=== PATIENT | male | born 1975 | race Caucasian/White ===

== ENCOUNTER 2018-11-12 21:29 | Emergency (ER) | payer OTHER ==
[~2018-11-12] VITALS: Ht 193 cm; Wt 90.7 kg
[2018-11-12 21:42] VITALS: BP 163/98
[2018-11-12] MEDS ORDERED: REMERON15 M2 PO (21:44)
[2018-11-12] MEDS ORDERED: GENVOYA TABLET1 EACH PO (21:45)
[2018-11-12] MEDS ORDERED: METFORMIN HCL500 MG PO (21:45)
[2018-11-12] MEDS ORDERED: AMARYL4 MG PO (21:45)
[2018-11-12] MEDS ORDERED: INVEGA6 MG PO (21:45)
[2018-11-12] MEDS ORDERED: COREG6.25 MG PO (21:46)
[2018-11-12] MEDS ORDERED: CLONAZEPAM 1 MG1 M1 PO ×2 (21:46→22:00)
[2018-11-12] MEDS ORDERED: LISINOPRIL10 MG PO (21:46)
== END 2018-11-12 22:05 | disposition home or self-care (01) ==
LOC: M.ERS 21:29
DX: F41.9 Anxiety disorder, unspecified (principal)

== ENCOUNTER 2019-12-29 02:41 | Emergency (ER) | payer OTHER ==
[~2019-12-29] VITALS: Ht 195.6 cm; Wt 108.9 kg
[~2019-12-29 02:41] MED LIST: AMARYL4 MG PO; CLONAZEPAM 1 MG1 M1 PO; COREG6.25 MG PO; GENVOYA TABLET1 EACH PO; INVEGA6 MG PO; LISINOPRIL10 MG PO; METFORMIN HCL500 MG PO; REMERON15 M2 PO
[2019-12-29] MEDS ORDERED: CLONAZEPAM 0.50.5 M1 PO (03:29)
[2019-12-29 03:49] VITALS: BP 174/104
== END 2019-12-29 03:50 | disposition home or self-care (01) ==
LOC: M.ERS 02:41
DX: F41.9 Anxiety disorder, unspecified (principal); I10 Essential (primary) hypertension; Z76.0 Encounter for issue of repeat prescription; Z79.899 Other long term (current) drug therapy

== ENCOUNTER 2020-02-12 01:12 | Emergency (ER) | payer OTHER ==
[~2020-02-12] VITALS: Ht 195.6 cm; Wt 108.9 kg
[~2020-02-12 01:12] MED LIST changes: +CLONAZEPAM 0.50.5 M1 PO
[2020-02-12] MEDS ORDERED: BUSPIRONE HCL5 MG PO (01:24)
[2020-02-12] MEDS ORDERED: HYDROCODON-ACE1 EAC7 PO (02:06)
[2020-02-12] MEDS ORDERED: CYCLOBENZAPRINE5 MG PO (02:06)
[2020-02-12] MEDS ORDERED: PENICILLIN V P500 MG PO (02:06)
[2020-02-12] MEDS ORDERED: PERIDEX 0.12%473 M1 SWISH&SPIT (02:16)
[2020-02-12] MEDS ORDERED: Magic Mouthwash SWISH&SPIT (02:16)
[2020-02-12 02:35] VITALS: BP 163/96
== END 2020-02-12 02:44 | disposition home or self-care (01) ==
LOC: M.ERS 01:12
DX: K02.9 Dental caries, unspecified (principal); K06.9 Disorder of gingiva and edentulous alveolar ridge, unspecified; K05.6 Periodontal disease, unspecified; I10 Essential (primary) hypertension; E11.9 Type 2 diabetes mellitus without complications; F41.9 Anxiety disorder, unspecified; Z21 Asymptomatic human immunodeficiency virus [HIV] infection status

== ENCOUNTER 2020-04-17 01:55 | Emergency (ER) | payer OTHER ==
[~2020-04-17] VITALS: Ht 195.6 cm; Wt 106.6 kg
[~2020-04-17 01:55] MED LIST changes: +BUSPIRONE HCL5 MG PO; +CYCLOBENZAPRINE5 MG PO; +HYDROCODON-ACE1 EAC7 PO; +Magic Mouthwash SWISH&SPIT; +PENICILLIN V P500 MG PO; +PERIDEX 0.12%473 M1 SWISH&SPIT
[2020-04-17] MEDS ORDERED: EZALLOR SPRINKL10 MG PO (02:10)
[2020-04-17] MEDS ORDERED: REMERON 30 MG T30 MG PO (02:12)
[2020-04-17] MEDS ORDERED: PENICILLIN V P500 MG PO (02:24)
[2020-04-17] MEDS ORDERED: HYDROCODON-ACE1 EAC7 PO (02:24)
[2020-04-17] MEDS ORDERED: PERIDEX 0.12%473 M1 SWISH&SPIT (02:24)
[2020-04-17 02:33] VITALS: BP 148/74
== END 2020-04-17 02:33 | disposition home or self-care (01) ==
LOC: M.ERS 01:55
DX: A69.1 Other Vincent's infections (principal); K05.10 Chronic gingivitis, plaque induced; I10 Essential (primary) hypertension; E11.9 Type 2 diabetes mellitus without complications; F41.9 Anxiety disorder, unspecified; Z21 Asymptomatic human immunodeficiency virus [HIV] infection status

== ENCOUNTER 2020-05-07 21:48 | Emergency (ER) | payer OTHER ==
[~2020-05-07] VITALS: Ht 195.6 cm; Wt 104.3 kg
[~2020-05-07 21:48] MED LIST changes: +EZALLOR SPRINKL10 MG PO; +REMERON 30 MG T30 MG PO
[2020-05-07] MEDS ORDERED: PENICILLIN V P500 MG PO (22:24)
[2020-05-07 22:43] VITALS: BP 147/97
== END 2020-05-07 22:44 | disposition home or self-care (01) ==
LOC: M.ERS 21:48
DX: K12.0 Recurrent oral aphthae (principal); K02.9 Dental caries, unspecified; I10 Essential (primary) hypertension; E11.9 Type 2 diabetes mellitus without complications

== ENCOUNTER 2020-05-24 14:12 | Emergency (ER) | payer OTHER ==
[~2020-05-24] VITALS: Ht 195.6 cm; Wt 108.9 kg
[2020-05-24] MEDS ORDERED: EFFEXOR XR75 MG PO (14:37)
[2020-05-24] MEDS ORDERED: NORCO 5-325 TA1 EAC2 PO (15:35)
[2020-05-24] MEDS ORDERED: CLEOCIN HCL300 MG PO (15:35)
[2020-05-24 15:42] VITALS: BP 142/73
== END 2020-05-24 15:43 | disposition home or self-care (01) ==
LOC: M.ERS 14:12
DX: K02.9 Dental caries, unspecified (principal); R60.9 Edema, unspecified; I10 Essential (primary) hypertension; E11.9 Type 2 diabetes mellitus without complications

== ENCOUNTER 2020-05-28 01:18 | Emergency (ER) | payer OTHER ==
[~2020-05-28] VITALS: Ht 195.6 cm; Wt 108.9 kg
[~2020-05-28 01:18] MED LIST changes: +CLEOCIN HCL300 MG PO; +EFFEXOR XR75 MG PO; +NORCO 5-325 TA1 EAC2 PO
[2020-05-28 01:28] VITALS: BP 157/89
== END 2020-05-28 02:51 | disposition left against medical advice (07) ==
LOC: M.ERS 01:18
DX: Z53.21 Procedure and treatment not carried out due to patient leaving prior to being seen by health care provider (principal)

== ENCOUNTER 2020-09-22 23:07 | Emergency (ER) | payer OTHER ==
[~2020-09-22] VITALS: Ht 195.6 cm; Wt 108.9 kg
[~2020-09-22 23:07] MED LIST changes: +ACETAMINOPHEN-1 EAC2 PO; +PENICILLIN VK500 MG PO
[2020-09-22] MEDS ORDERED: VENLAFAXINE HC150 M1 PO (23:23)
[2020-09-22] MEDS ORDERED: CHANTIX1 MG PO (23:24)
[2020-09-23 00:14] VITALS: BP 142/95
== END 2020-09-23 00:04 | disposition home or self-care (01) ==
LOC: M.ERS 23:07
DX: K02.9 Dental caries, unspecified (principal); R59.0 Localized enlarged lymph nodes; I10 Essential (primary) hypertension; E11.9 Type 2 diabetes mellitus without complications; F41.9 Anxiety disorder, unspecified; Z79.899 Other long term (current) drug therapy

== ENCOUNTER 2020-09-27 19:30 | Emergency (ER) | payer OTHER ==
[~2020-09-27] VITALS: Ht 195.6 cm; Wt 108.9 kg
[~2020-09-27 19:30] MED LIST changes: +CHANTIX1 MG PO; +VENLAFAXINE HC150 M1 PO
[2020-09-27 19:37] VITALS: BP 170/99
[2020-09-27] MEDS ORDERED: CLEOCIN HCL300 MG PO (19:51)
[2020-09-27] MEDS ORDERED: IBUPROFEN 800800 M1 PO (19:51)
[2020-09-27] MEDS ORDERED: NORCO5 PO (19:51)
== END 2020-09-27 20:00 | disposition home or self-care (01) ==
LOC: M.ERS 19:30
DX: K08.89 Other specified disorders of teeth and supporting structures (principal); I10 Essential (primary) hypertension; E11.9 Type 2 diabetes mellitus without complications

== ENCOUNTER 2020-09-29 21:21 | Emergency (ER) | payer OTHER ==
[~2020-09-29] VITALS: Ht 195.6 cm; Wt 108.9 kg
[~2020-09-29 21:21] MED LIST changes: +IBUPROFEN 800800 M1 PO; +NORCO5 PO
[2020-09-29] MEDS ORDERED: ACETAMINOPHEN-1 EAC2 PO (21:50)
[2020-09-29] MEDS ORDERED: IBUPROFEN 800800 MG PO (21:50)
[2020-09-29 22:05] VITALS: BP 172/110
== END 2020-09-29 22:05 | disposition home or self-care (01) ==
LOC: M.ERS 21:21
DX: A69.1 Other Vincent's infections (principal); K02.9 Dental caries, unspecified; G89.29 Other chronic pain; I10 Essential (primary) hypertension; E11.9 Type 2 diabetes mellitus without complications; F41.9 Anxiety disorder, unspecified; Z79.899 Other long term (current) drug therapy; Z79.2 Long term (current) use of antibiotics

== ENCOUNTER 2020-12-09 05:40 | Inpatient (IN) | payer OTHER ==
[~2020-12-09] VITALS: Ht 195.6 cm; Wt 101.2 kg
[~2020-12-09 05:40] MED LIST changes: +IBUPROFEN 800800 MG PO
[2020-12-09 05:44] VITALS: BP 134/62
[2020-12-09 06:24] LABS: ABSOLUTE EOSINOPHILS 0.1 thou/uL (0.0-0.7); ABSOLUTE LYMPHOCYTES 0.7 thou/uL (0.8-5.3); ABSOLUTE MONOCYTES 0.3 thou/uL (0.0-1.2); ABSOLUTE NEUTROPHILS 1.8 thou/uL (1.6-8.1); BASOPHILS 0.5 %; EOSINOPHILS 4.6 %; HEMATOCRIT 31.7 % (42.0-52.0); HEMOGLOBIN 11.3 gm/dL (14.0-18.0); LYMPHOCYTES 23.3 %; MCH 33.1 pg (26.0-34.0); MCHC 35.7 g/dL (28.0-37.0); MCV 92.7 fL (80.0-100.0); MPV 7.8 fl. (7.2-11.1); NUCLEATED RBCS 0 /100WBC; PLATELET COUNT* 66 thou/uL (150-400); POLYS 62.6 %; RBC 3.42 mil/uL (4.50-6.00); WBC 2.9 thou/uL (4.0-11.0)
[2020-12-09 06:31] LABS: CREATININE 2.6 mg/dL (0.6-1.3); POTASSIUM 4.6 mmol/L (3.5-5.1)
[2020-12-09 06:32] LABS: CALCIUM 13.3 mg/dL (8.5-10.1)
[2020-12-09 06:35] LABS: MAGNESIUM 1.6 mg/dL (1.8-2.4); TOTAL BILIRUBIN 0.4 mg/dL (<0.1-1.0); TOTAL PROTEIN 7.2 g/dL (6.4-8.2)
[2020-12-09 08:17] VITALS: BP 141/98
[2020-12-09 08:48] VITALS: BP 138/88
--- NOTE | 2020-12-09 09:39 | EKG ---
[place] [address] ELECTROCARDIOGRAM REPORT Name: SHAHIDA DHALIWAL Room: [address] ADM IN .R.#: [id number] Admission: 12/09/20 Attend Phys: Jil Bowie, Discharge: Date of : 79 Date of Service: 12/09/20 0545 Report #: [id number] THIS REPORT FOR: //name// [facility] ED Test Date: 2020-12-09 Test Time: 05:45:00 Pat Name: SHAHIDA DHALIWAL Department: Room: [facility] Gender: M Supervisor Dials: [place] : 1975 Requested By: Krista Vela Order Number: [id number] MD: Silverio Pimentel Measurements Intervals [place] Rate: 102 P: 27 [place]: 151 QRS: 47 QRSD: 95 T: -26 QT: 320 QTc: 417 Interpretive Statements Sinus tachycardia Borderline T abnormalities, inferior leads Baseline wander in lead(s) III,V2 No previous ECG available for comparison Electronically Signed On 12-09-2020 9:39:14 CDT by Silverio Pimentel [email or web address] <ELECTRONICALLY SIGNED> By: Silverio Pimentel MD, [facility] 12/09/20 0939 0545 0545 Silverio Pimentel MD, [facility] /EPI
[2020-12-09 10:58] LABS: CREATININE 2.2 mg/dL (0.6-1.3); POTASSIUM 4.5 mmol/L (3.5-5.1)
[2020-12-09 11:00] LABS: CALCIUM 12.7 mg/dL (8.5-10.1)
[2020-12-09 11:01] LABS: PHOSPHORUS* 4.1 mg/dL (2.5-4.9)
[2020-12-09 11:48] VITALS: BP 145/95
[2020-12-09 17:15] VITALS: BP 161/98
[2020-12-09 21:09] VITALS: BP 159/89
[2020-12-10] VITALS (8 sets, daily range): BP systolic 130–150; BP diastolic 71–93
[2020-12-10 06:05] LABS: HEMATOCRIT 27.1 % (42.0-52.0); HEMOGLOBIN 9.7 gm/dL (14.0-18.0); MCH 32.3 pg (26.0-34.0); MCHC 35.7 g/dL (28.0-37.0); MCV 90.6 fL (80.0-100.0); MPV 8.5 fl. (7.2-11.1); RBC 2.99 mil/uL (4.50-6.00); RDW-CV 13.9 % (10.5-14.5); WBC 4.3 thou/uL (4.0-11.0)
[2020-12-10 06:16] LABS: CREATININE 2.1 mg/dL (0.6-1.3); POTASSIUM 4.1 mmol/L (3.5-5.1)
[2020-12-10 06:17] LABS: CALCIUM 10.5 mg/dL (8.5-10.1)
[2020-12-10 21:23] LABS: CALCIUM 9.6 mg/dL (8.5-10.1); POTASSIUM 3.8 mmol/L (3.5-5.1)
== END 2020-12-10 22:40 | disposition home or self-care (01) | DRG 640 ==
LOC: M.ERS 05:40 → M.TBA-ER 06:38 → M.2W 08:29
PROVIDERS: Emergency Medicine; Family Medicine; ADMIT Internal Medicine; ATTEND Internal Medicine
DX: E83.52 Hypercalcemia (principal); N17.0 Acute kidney failure with tubular necrosis; F10.980 Alcohol use, unspecified with alcohol-induced anxiety disorder; D61.818 Other pancytopenia; Z21 Asymptomatic human immunodeficiency virus [HIV] infection status; I10 Essential (primary) hypertension; F41.9 Anxiety disorder, unspecified; F15.90 Other stimulant use, unspecified, uncomplicated; E11.9 Type 2 diabetes mellitus without complications; F17.200 Nicotine dependence, unspecified, uncomplicated; K21.9 Gastro-esophageal reflux disease without esophagitis; T43.615A Adverse effect of caffeine, initial encounter; Y92.89 Other specified places as the place of occurrence of the external cause; Y90.9 Presence of alcohol in blood, level not specified; Z20.822 Contact with and (suspected) exposure to COVID-19

== ENCOUNTER 2020-12-29 12:24 | Emergency (ER) | payer OTHER ==
[~2020-12-29] VITALS: Ht 195.6 cm; Wt 99.8 kg
[2020-12-29 13:20] VITALS: BP 140/83
== END 2020-12-29 13:21 | disposition home or self-care (01) ==
LOC: M.ERS 12:24
DX: F41.9 Anxiety disorder, unspecified (principal); I10 Essential (primary) hypertension; E11.9 Type 2 diabetes mellitus without complications; F25.9 Schizoaffective disorder, unspecified; Z79.82 Long term (current) use of aspirin

== ENCOUNTER 2021-02-13 01:06 | Emergency (ER) | payer OTHER ==
[~2021-02-13] VITALS: Ht 195.6 cm; Wt 101.2 kg
[2021-02-13 01:12] VITALS: BP 153/89
[2021-02-13] MEDS ORDERED: SEROQUEL 25 MG25 MG PO (01:17)
[2021-02-13] MEDS ORDERED: VISTARIL 25 MG25 M1 PO (01:17)
[2021-02-13 01:30] LABS: ABSOLUTE EOSINOPHILS 0.1 thou/uL (0.0-0.7); ABSOLUTE LYMPHOCYTES 0.6 thou/uL (0.8-5.3); ABSOLUTE MONOCYTES 0.2 thou/uL (0.0-1.2); ABSOLUTE NEUTROPHILS 1.1 thou/uL (1.6-8.1); BASOPHILS 0.4 %; EOSINOPHILS 7.1 %; HEMATOCRIT 30.1 % (42.0-52.0); HEMOGLOBIN 10.7 gm/dL (14.0-18.0); LYMPHOCYTES 27.2 %; MCH 34.7 pg (26.0-34.0); MCHC 35.5 g/dL (28.0-37.0); MCV 97.7 fL (80.0-100.0); MONOCYTES 11.2 %; NUCLEATED RBCS 0 /100WBC; PLATELET COUNT* 64 thou/uL (150-400); POLYS 54.1 %; RBC 3.08 mil/uL (4.50-6.00); RDW-CV 14.9 % (10.5-14.5); WBC 2.1 thou/uL (4.0-11.0)
[2021-02-13 01:31] LABS: CALCIUM 8.7 mg/dL (8.5-10.1); POTASSIUM 3.7 mmol/L (3.5-5.1)
[2021-02-13 01:36] LABS: ALBUMIN 4.1 g/dL (3.4-5.0); TOTAL BILIRUBIN 0.4 mg/dL (<0.1-1.0); TOTAL PROTEIN 6.9 g/dL (6.4-8.2)
[2021-02-13 01:37] LABS: URINE BILIRUBIN NEGATIVE (Negative); URINE BLOOD NEGATIVE (Negative); URINE CLARITY CLEAR; URINE COLOR YELLOW; URINE GLUCOSE-RANDOM TRACE (Negative); URINE KETONES NEGATIVE (Negative); URINE LEUKOCYTES-REFLEX NEGATIVE (Negative); URINE NITRITE-REFLEX NEGATIVE (Negative); URINE PROTEIN NEGATIVE (Negative)
[2021-02-13 01:45] LABS: AMP/METHAMP Negative (Negative); BARBITURATES Negative (Negative); BENZODIAZEPINES Negative (Negative); COCAINE Negative (Negative); METHADONE Negative (Negative); OPIATES Negative (Negative); PCP Negative (Negative); THC Negative (Negative)
[2021-02-13] MEDS ORDERED: APAP W/CODEINE1 TA2 PO (02:04)
[2021-02-13 03:10] LABS: ESR (SEDRATE) 36 mm/hr (0-15)
== END 2021-02-13 02:18 | disposition home or self-care (01) ==
LOC: M.ERS 01:06
PROVIDERS: Emergency Medicine
DX: M25.552 Pain in left hip (principal); I10 Essential (primary) hypertension; E11.9 Type 2 diabetes mellitus without complications; Z79.899 Other long term (current) drug therapy

== ENCOUNTER 2021-02-25 03:07 | Emergency (ER) | payer OTHER ==
[~2021-02-25] VITALS: Ht 195.6 cm; Wt 101.2 kg
[~2021-02-25 03:07] MED LIST changes: +APAP W/CODEINE1 TA2 PO; +SEROQUEL 25 MG25 MG PO; +VISTARIL 25 MG25 M1 PO
[2021-02-25 05:12] VITALS: BP 153/87
--- NOTE | 2021-02-25 10:34 | EKG ---
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1975 Requested By: Meg Cabrales Order Number: [id number] MD: Silverio Pimentel Measurements Intervals [place] Rate: 94 P: 24 [place]: 158 QRS: 49 QRSD: 94 T: -33 QT: 347 QTc: 434 Interpretive Statements Sinus rhythm Probable left atrial enlargement Borderline repolarization abnormality Compared to ECG 12/09/2020 05:45:00 Sinus tachycardia no longer present Electronically Signed On 02-25-2021 10:33:57 CDT by Silverio Pimentel [email or web address] <ELECTRONICALLY SIGNED> By: Silverio Pimentel MD, [facility] 02/25/21 1033 0325 0325 Silverio Pimentel MD, [facility] /EPI
== END 2021-02-25 05:12 | disposition home or self-care (01) ==
LOC: M.ERS 03:07
DX: F41.9 Anxiety disorder, unspecified (principal); I10 Essential (primary) hypertension; E11.9 Type 2 diabetes mellitus without complications; Z79.899 Other long term (current) drug therapy

== ENCOUNTER 2021-04-03 03:14 | Emergency (ER) | payer OTHER ==
[~2021-04-03] VITALS: Ht 195.6 cm; Wt 102.1 kg
[2021-04-03] MEDS ORDERED: NORCO5 PO (03:32)
[2021-04-03 03:39] VITALS: BP 161/96
== END 2021-04-03 03:39 | disposition home or self-care (01) ==
LOC: M.ERS 03:14
DX: K02.9 Dental caries, unspecified (principal); I10 Essential (primary) hypertension; E11.9 Type 2 diabetes mellitus without complications; Z79.899 Other long term (current) drug therapy; F17.200 Nicotine dependence, unspecified, uncomplicated; Z21 Asymptomatic human immunodeficiency virus [HIV] infection status

== ENCOUNTER 2021-04-06 14:47 | Emergency (ER) | payer OTHER ==
[~2021-04-06] VITALS: Ht 195.6 cm; Wt 102.1 kg
[2021-04-06] MEDS ORDERED: APAP W/CODEINE1 TA2 PO (16:02)
[2021-04-06] MEDS ORDERED: AMOXIL 875 MG875 M1 PO (16:02)
[2021-04-06 16:14] VITALS: BP 171/70
== END 2021-04-06 16:15 | disposition home or self-care (01) ==
LOC: M.ERS 14:47
DX: K08.89 Other specified disorders of teeth and supporting structures (principal); I10 Essential (primary) hypertension; F41.9 Anxiety disorder, unspecified; E11.9 Type 2 diabetes mellitus without complications; F25.9 Schizoaffective disorder, unspecified; Z21 Asymptomatic human immunodeficiency virus [HIV] infection status; Z79.899 Other long term (current) drug therapy

== ENCOUNTER 2021-05-08 08:15 | Emergency (ER) | payer OTHER ==
[~2021-05-08] VITALS: Ht 195.6 cm; Wt 99.8 kg
[~2021-05-08 08:15] MED LIST changes: +AMOXIL 875 MG875 M1 PO
[2021-05-08 08:27] VITALS: BP 150/88
[2021-05-08] MEDS ORDERED: AUGMENTIN 875-1 EACH PO (22:29)
== END 2021-05-08 09:26 | disposition home or self-care (01) ==
LOC: M.ERS 08:15
DX: K08.89 Other specified disorders of teeth and supporting structures (principal); Z53.21 Procedure and treatment not carried out due to patient leaving prior to being seen by health care provider

== ENCOUNTER 2021-05-08 21:53 | Emergency (ER) | payer OTHER ==
[~2021-05-08] VITALS: Ht 195.6 cm; Wt 99.8 kg
[2021-05-08 22:00] VITALS: BP 159/84
[2021-05-08] MEDS ORDERED: AUGMENTIN 875-1 EACH PO (22:29)
== END 2021-05-08 22:37 | disposition home or self-care (01) ==
LOC: M.ERS 21:53
DX: K08.89 Other specified disorders of teeth and supporting structures (principal); I10 Essential (primary) hypertension; F41.9 Anxiety disorder, unspecified; E11.9 Type 2 diabetes mellitus without complications; F20.9 Schizophrenia, unspecified; F17.210 Nicotine dependence, cigarettes, uncomplicated; Z21 Asymptomatic human immunodeficiency virus [HIV] infection status; Z79.899 Other long term (current) drug therapy

== ENCOUNTER 2021-05-10 20:56 | Emergency (ER) | payer OTHER ==
[~2021-05-10] VITALS: Ht 195.6 cm; Wt 99.8 kg
[~2021-05-10 20:56] MED LIST changes: +AUGMENTIN 875-1 EACH PO
[2021-05-10] MEDS ORDERED: NORCO5 PO (21:50)
[2021-05-10 22:02] VITALS: BP 175/98
== END 2021-05-10 22:03 | disposition home or self-care (01) ==
LOC: M.ERS 20:56
DX: K08.89 Other specified disorders of teeth and supporting structures (principal); I10 Essential (primary) hypertension; F41.9 Anxiety disorder, unspecified; E11.9 Type 2 diabetes mellitus without complications; F20.9 Schizophrenia, unspecified; F17.210 Nicotine dependence, cigarettes, uncomplicated; Z21 Asymptomatic human immunodeficiency virus [HIV] infection status; Z79.899 Other long term (current) drug therapy

== ENCOUNTER 2021-05-19 22:04 | Emergency (ER) | payer OTHER ==
[~2021-05-19] VITALS: Ht 195.6 cm; Wt 101.6 kg
[2021-05-20] MEDS ORDERED: OXYCODONE HCL 55 MG PO (00:36)
[2021-05-20 00:41] VITALS: BP 160/89
== END 2021-05-20 00:42 | disposition home or self-care (01) ==
LOC: M.ERS 22:04
DX: K08.89 Other specified disorders of teeth and supporting structures (principal); I10 Essential (primary) hypertension; F41.9 Anxiety disorder, unspecified; E11.9 Type 2 diabetes mellitus without complications; F20.9 Schizophrenia, unspecified; F17.210 Nicotine dependence, cigarettes, uncomplicated; Z21 Asymptomatic human immunodeficiency virus [HIV] infection status; Z79.899 Other long term (current) drug therapy

== ENCOUNTER 2021-08-11 07:11 | Emergency (ER) | payer OTHER ==
[~2021-08-11] VITALS: Ht 195.6 cm; Wt 99.8 kg
[~2021-08-11 07:11] MED LIST changes: +BUSPIRONE HCL15 MG PO; -BUSPIRONE HCL5 MG PO; +OXYCODONE HCL 55 MG PO
[2021-08-11] MEDS ORDERED: INVEGA TRI546 MG/1.7 IM (07:36)
[2021-08-11] MEDS ORDERED: JARDIANCE25 MG PO (07:36)
[2021-08-11] MEDS ORDERED: JANUVIA50 MG PO (07:36)
[2021-08-11] MEDS ORDERED: TRAZODONE HCL50 MG PO (07:38)
[2021-08-11 08:37] LABS: ABSOLUTE EOSINOPHILS 0.1 thou/uL (0.0-0.7); ABSOLUTE LYMPHOCYTES 0.9 thou/uL (0.8-5.3); ABSOLUTE MONOCYTES 0.5 thou/uL (0.0-1.2); ABSOLUTE NEUTROPHILS 4.5 thou/uL (1.6-8.1); BASOPHILS 0.4 %; EOSINOPHILS 1.9 %; HEMATOCRIT 42.2 % (42.0-52.0); HEMOGLOBIN 14.3 gm/dL (14.0-18.0); LYMPHOCYTES 14.2 %; MCH 31.1 pg (26.0-34.0); MCHC 33.9 g/dL (28.0-37.0); MCV 91.7 fL (80.0-100.0); MPV 8.3 fl. (7.2-11.1); NUCLEATED RBCS 0 /100WBC; PLATELET COUNT* 69 thou/uL (150-400); POLYS 74.5 %
[2021-08-11 08:43] LABS: CALCIUM 9.9 mg/dL (8.5-10.1); CREATININE 1.4 mg/dL (0.6-1.3); POTASSIUM 4.4 mmol/L (3.5-5.1)
[2021-08-11 08:48] LABS: ALBUMIN 4.5 g/dL (3.4-5.0); TOTAL BILIRUBIN 0.6 mg/dL (<0.1-1.0); TOTAL PROTEIN 7.9 g/dL (6.4-8.2)
[2021-08-11] MEDS ORDERED: XANAX 0.25 MG0.25 MG PO (09:24)
[2021-08-11 09:37] VITALS: BP 142/89
--- NOTE | 2021-08-11 10:05 | EKG ---
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
== END 2021-08-11 09:38 | disposition home or self-care (01) ==
LOC: M.ERS 07:11
PROVIDERS: Emergency Medicine
DX: F41.9 Anxiety disorder, unspecified (principal); E11.65 Type 2 diabetes mellitus with hyperglycemia; E86.0 Dehydration; I10 Essential (primary) hypertension; F25.9 Schizoaffective disorder, unspecified; F17.210 Nicotine dependence, cigarettes, uncomplicated; Z90.49 Acquired absence of other specified parts of digestive tract; Z79.899 Other long term (current) drug therapy

== ENCOUNTER 2021-08-13 11:57 | Emergency (ER) | payer OTHER ==
[~2021-08-13] VITALS: Ht 195.6 cm; Wt 99.8 kg
[~2021-08-13 11:57] MED LIST changes: +INVEGA TRI546 MG/1.7 IM; +JANUVIA50 MG PO; +JARDIANCE25 MG PO; +TRAZODONE HCL50 MG PO; +XANAX 0.25 MG0.25 MG PO
[2021-08-13] MEDS ORDERED: VISTARIL 25 MG25 M1 PO (12:35)
[2021-08-13 12:45] VITALS: BP 138/88
== END 2021-08-13 12:47 | disposition home or self-care (01) ==
LOC: M.ERS 11:57
DX: F41.9 Anxiety disorder, unspecified (principal); I10 Essential (primary) hypertension; E11.9 Type 2 diabetes mellitus without complications; F20.9 Schizophrenia, unspecified; F17.210 Nicotine dependence, cigarettes, uncomplicated; Z21 Asymptomatic human immunodeficiency virus [HIV] infection status; Z79.899 Other long term (current) drug therapy; Z90.49 Acquired absence of other specified parts of digestive tract